=== PATIENT | male | born 1930 | race Caucasian/White ===

== ENCOUNTER 2018-06-24 00:13 | Observation (INO) | payer MEDICARE ==
[~2018-06-24] VITALS: Ht 175.3 cm; Wt 93.4 kg
[~2018-06-24 00:13] MED LIST: ? HTN MED; ACEDIPPM PO; ACTOS; AMLO5 PO; Aspirin EC81 MG PO; CARDURA; CEPH500 PO; DOXA4 PO; GLUC500 PO; GLUCHON PO; HYDACE5 PO; Isosorbide Mono30 MG PO; LISHYD2012 PO; LISI20 PO; LOSARTAN-HCTZ1 EAC1 PO; One Daily Comp1 EACH PO; PIOG45 PO; Pravachol20 MG PO; SLO-MAG; TEMA30 PO; TYLENOL ARTHRITIS PO; [UNRECOGNIZED DRUG - REMARK] PO
[2018-06-24 01:30] LABS: BASOPHILS ABSOLUTE AUTO 0.02 K/mm3 (0.00-0.23); BASOPHILS PERCENT AUTO 0 % (0-2); EOSINOPHILS ABSOLUTE AUTO 0.16 K/mm3 (0.00-0.68); EOSINOPHILS PERCENT AUTO 3 % (0-6); Hematocrit 33.2 % (37.0-53.0); Hemoglobin 11.2 g/dL (13.5-17.5); IMMATURE GRAN ABSOLUTE AUTO 0.01 K/mm3 (0.00-0.10); IMMATURE GRAN PERCENT AUTO 0 % (0-1); LYMPHOCYTES ABSOLUTE AUTO 2.25 K/mm3 (0.84-5.20); LYMPHOCYTES PERCENT AUTO 37 % (21-46); MONOCYTES ABSOLUTE AUTO 0.51 K/mm3 (0.16-1.47); MONOCYTES PERCENT AUTO 9 % (4-13); Mean Corpuscular HGB 31.5 pg (26.0-34.0); Mean Corpuscular HGB Conc 33.7 g/dL (31.5-36.5); Mean Corpuscular Volume 94 fL (80-100); Mean Platelet Volume 11.4 fL (9.1-12.4); NEUTROPHILS ABSOLUTE AUTO 3.07 K/mm3 (1.96-9.15); NEUTROPHILS PERCENT AUTO 51 % (41-73); Platelet Count 122 K/mm3 (150-400); RDW Coefficient Variation 12.6 % (11.7-14.2); RDW Standard Deviation 43.2 fL (35.1-46.3); Red Blood Cell Count 3.55 M/mm3 (4.30-5.90); White Blood Cell Count 6.02 K/mm3 (4.00-11.30)
[2018-06-24 01:42] LABS: International Normalized Ratio 1.05; Prothrombin Time Results 10.8 Sec (9.7-11.5)
[2018-06-24 01:48] LABS: Alanine Aminotransfer (ALT/SGP 23 U/L (12-78); Albumin, Blood 3.3 g/dL (3.4-5.0); Albumin/Globulin Ratio 0.9 (0.8-1.8); Alk Phos 43 U/L (50-136); Anion Gap 7 mmol/L (6-16); Aspartate Aminotrans (AST/SGOT 12 U/L (12-37); Bilirubin, Total 0.3 mg/dL (0.1-1.0); Blood Urea Nitrogen 22 mg/dL (8-24); Bun/Creatinine Ratio 17.9 (12.0-20.0); CO2, Blood 27 mmol/L (21-32); Calcium, Blood 7.8 mg/dL (8.5-10.1); Chloride, Blood 107 mmol/L (98-108); Creatinine, Blood 1.23 mg/dL (0.60-1.20); Globulin, Blood 3.6 g/dL (2.2-4.0); Glomerular Filtration Rate 59 (60-); Glucose, Blood 104 mg/dL (70-99); Potassium, Blood 4.1 mmol/L (3.5-5.5); Sodium, Blood 141 mmol/L (136-145); Total Protein, Blood 6.9 g/dL (6.4-8.2); Troponin I <0.015 ng/mL (0.000-0.040)
[2018-06-24] MEDS ORDERED: ABAT250V (04:59)
[2018-06-24] MEDS ORDERED: Coq-1030 MG PO (04:59)
[2018-06-25] MEDS ORDERED: GUAI600T33 PO (09:07)
[2018-06-25] MEDS ORDERED: MOTION RELIEF25 MG PO (09:08)
== END 2018-06-25 11:04 | disposition home or self-care (01) ==
LOC: ER 00:13 → MEDS 00:14
PROVIDERS: Emergency Medicine
DX: R42 Dizziness and giddiness (principal); E11.9 Type 2 diabetes mellitus without complications; I10 Essential (primary) hypertension; J34.89 Other specified disorders of nose and nasal sinuses; E78.5 Hyperlipidemia, unspecified; D69.6 Thrombocytopenia, unspecified; N40.0 Benign prostatic hyperplasia without lower urinary tract symptoms; G47.33 Obstructive sleep apnea (adult) (pediatric); R00.1 Bradycardia, unspecified; D64.9 Anemia, unspecified; Z88.8 Allergy status to other drugs, medicaments and biological substances; Z79.82 Long term (current) use of aspirin; Z79.899 Other long term (current) drug therapy
CPT/HCPCS: 70450; 71045; 80053; 81000; 83036; 83880; 84443; 84484; 85025; 85610; 93005; 93010; 94762; 96360; 96361; 96372; 99285-25; G0378; J1650; J7030; J7120

== ENCOUNTER 2019-02-09 05:56 | Day surgery (SDC) | payer MEDICARE ==
[~2019-02-09] VITALS: Ht 167.6 cm; Wt 95.0 kg
[~2019-02-09 05:56] MED LIST changes: +ABAT250V; +Coq-1030 MG PO; +GUAI600T33 PO; +MOTION RELIEF25 MG PO
--- NOTE | 2019-02-09 09:30 | NUR ---
10cc air removed from the TR Band. -bleeding and swelling.
--- NOTE | 2019-02-09 10:26 | NUR ---
TR BAND REMOVED FROM R WRIST. -BLEEDING OR SWELLING. PUNCTURE AREA CLEANED WITH NS. CLOTH DOT DRSG PLACED. WRIST SPLINT REAAPLIED. PT AND VERBALIZED UNDERSTANDING OF WRITTEN AND VERBAL D/C INST. IV REMOVED. PT TAKEN OUT OF THE HRT CENTER VIA W/C.
== END 2019-02-09 10:30 | disposition home or self-care (01) ==
LOC: MHTC 05:56
DX: I25.10 Atherosclerotic heart disease of native coronary artery without angina pectoris (principal); I35.0 Nonrheumatic aortic (valve) stenosis; I38 Endocarditis, valve unspecified; I13.10 Hypertensive heart and chronic kidney disease without heart failure, with stage 1 through stage 4 chronic kidney disease, or unspecified chronic kidney disease; N18.9 Chronic kidney disease, unspecified; E78.5 Hyperlipidemia, unspecified; K21.9 Gastro-esophageal reflux disease without esophagitis; G47.30 Sleep apnea, unspecified; Z88.8 Allergy status to other drugs, medicaments and biological substances; Z79.899 Other long term (current) drug therapy; Z79.82 Long term (current) use of aspirin; Z87.891 Personal history of nicotine dependence
CPT/HCPCS: 93458; 99152; 99153; C1769; J1644; J2250; J3010; J7030; Q9967